=== PATIENT | female | born 1970 | race Caucasian/White ===

== ENCOUNTER 2016-10-25 00:31 | Emergency (ER) | payer SELFPAY ==
[~2016-10-25] VITALS: Ht 170.2 cm; Wt 87.1 kg
[2016-10-25 02:00] VITALS: BP 115/85
== END 2016-10-25 03:50 | disposition home or self-care (01) ==
LOC: ER 00:35 → EDBD 00:35 → ER 03:50
DX: S01.311A Laceration without foreign body of right ear, initial encounter (principal); Y93.89 Activity, other specified; W19.XXXA Unspecified fall, initial encounter; Y99.8 Other external cause status; Y92.89 Other specified places as the place of occurrence of the external cause; Z88.6 Allergy status to analgesic agent
CPT/HCPCS: 12011; 70450; 70486; 72125